=== PATIENT | female | born 1985 | race Caucasian/White ===

== ENCOUNTER 2023-07-19 16:44 | Outpatient (CLI) | payer BC, SELFPAY ==
[2023-07-19 16:24] LABS: Basophils # 0.1 K/mm3 (0-0.2); Basophils % 0.7 % (0.1-2.0); Eosinophils # 0.1 K/mm3 (0.0-0.4); Eosinophils % 1.3 % (0.1-12.0); Hematocrit 39.3 % (37.0-47.0); Hemoglobin 13.1 g/dL (12.2-16.2); Lymphocytes # 2.6 K/mm3 (0.7-4.5); Lymphocytes % 26.5 % (10-50); Mean Corpuscular HGB Conc 33.3 g/dL (31.8-35.4); Mean Corpuscular Hemoglobin 29.9 pg (27.0-31.2); Monocytes # 0.5 K/mm3 (0.1-1.0); Monocytes % 4.6 % (1.7-9.3); Neutrophils # 6.5 K/mm3 (1.8-7.8); Neutrophils % 66.8 % (37.0-80.0); Platelet Count 285 K/mm3 (142-424); Red Blood Count 4.37 M/mm3 (4.20-5.40); Red Cell Distribution Width 14.3 % (11.5-17.5); White Blood Count 9.8 K/mm3 (4.8-10.8)
[2023-07-19 16:39] LABS: Alanine Aminotransferase 12 U/L (12-78); Albumin/Globulin Ratio 1.4 (1.1-1.8); Alkaline Phosphatase 70 U/L (38-126); Anion Gap 7.9 mEq/L (5-15); Aspartate Amino Transferase 22 U/L (14-36); Bilirubin,Total 0.3 mg/dl (0.2-1.3); Blood Urea Nitrogen 13 mg/dl (7-17); Calcium 8.4 mg/dl (8.4-10.2); Carbon Dioxide 29 mmol/L (22.0-30.0); Chloride 105 mmol/L (98-107); Chol/HDL Ratio 5.2 (1-3.5); Cholesterol 199 mg/dl (140-200); Estimated Glomerular Filt Rate 70 ml/min (>60); GFR (African American) 85 ML/MIN (>60); Globulin 2.9 g/dL (1.3-3.2); Glucose 95 mg/dl (74-100); HDL Cholesterol 38 mg/dl (40-60); Potassium 3.9 mmoL/L (3.5-5.1); Sodium 138 mmol/L (136-145); Total Protein,Serum 6.9 g/dl (6.3-8.2); Triglycerides 115 mg/dl (30-150); VLDL Cholesterol 23 mg/dL (0-40)
[2023-07-19 16:52] LABS: Direct LDL Cholesterol 128.56 mg/dL (100-129)
[2023-07-19 17:44] LABS: Thyroid Stimulating Hormone 1.62 uIU/mL (0.465-4.68)
[2023-07-19 18:58] LABS: 25-OH Vitamin D, Total 17.6 ng/mL (30-100)
[2023-07-19 19:30] LABS: Vitamin B12 351 pg/mL (239-931)
== END 2023-07-19 23:59 ==
LOC: LAB.DROPOF 16:45
PROVIDERS: PCP Nurse Practitioner Family; Visit Provider Nurse Practitioner Family
DX: F41.9 Anxiety disorder, unspecified (principal); E55.9 Vitamin D deficiency, unspecified; Z79.899 Other long term (current) drug therapy
CPT/HCPCS: 80053; 80061; 82306; 82607; 84443; 85025

== ENCOUNTER 2024-07-20 09:05 | Outpatient (CLI) | payer BC, SELFPAY ==
[2024-07-20 16:26] LABS: Basophils # 0.1 K/mm3 (0-0.2); Basophils % 0.6 % (0.1-2.0); Eosinophils # 0.2 K/mm3 (0.0-0.4); Eosinophils % 2.4 % (0.1-12.0); Hematocrit 39.2 % (37.0-47.0); Hemoglobin 12.4 g/dL (12.2-16.2); Lymphocytes # 1.9 K/mm3 (0.7-4.5); Lymphocytes % 23.5 % (10-50); Mean Corpuscular HGB Conc 31.6 g/dL (31.8-35.4); Mean Corpuscular Hemoglobin 28.4 pg (27.0-31.2); Mean Corpuscular Volume 89.7 fl (81-99); Mean Platelet Volume 11.1 fl (7.4-10.4); Monocytes # 0.4 K/mm3 (0.1-1.0); Monocytes % 5.5 % (1.7-9.3); Neutrophils # 5.4 K/mm3 (1.8-7.8); Neutrophils % 67.8 % (37.0-80.0); Platelet Count 346 K/mm3 (142-424); Red Blood Count 4.37 M/mm3 (4.20-5.40); Red Cell Distribution Width 13.9 % (11.5-17.5)
[2024-07-20 16:57] LABS: Alanine Aminotransferase 13 U/L (12-78); Albumin Level 4.3 g/dl (3.5-5.0); Albumin/Globulin Ratio 1.7 (1.1-1.8); Alkaline Phosphatase 71 U/L (38-126); Anion Gap 13.4 mEq/L (5-15); Aspartate Amino Transferase 21 U/L (14-36); Bilirubin,Total 0.2 mg/dl (0.2-1.3); Blood Urea Nitrogen 14 mg/dl (7-17); Calcium 9.5 mg/dl (8.4-10.2); Carbon Dioxide 29 mmol/L (22.0-30.0); Chloride 103 mmol/L (98-107); Chol/HDL Ratio 4.4 (1-3.5); Cholesterol 218 mg/dl (140-200); Estimated Glomerular Filt Rate 80 ml/min (>60); GFR (African American) 97 ML/MIN (>60); Globulin 2.5 g/dL (1.3-3.2); Glucose 76 mg/dl (74-100); HDL Cholesterol 50 mg/dl (40-60); Potassium 4.4 mmoL/L (3.5-5.1); Sodium 141 mmol/L (136-145); Total Protein,Serum 6.8 g/dl (6.3-8.2); Triglycerides 142 mg/dl (30-150); VLDL Cholesterol 28 mg/dL (0-40)
[2024-07-20 17:09] LABS: Direct LDL Cholesterol 139.62 mg/dL (100-129)
[2024-07-20 17:14] LABS: T4 (Thyroxine) 9.6 ug/dl (5.53-11.0)
[2024-07-20 17:15] LABS: 25-OH Vitamin D, Total 36.2 ng/mL (30-100)
[2024-07-20 17:28] LABS: Hemoglobin A1C 5.2 % (4.0-6.0); Thyroid Stimulating Hormone 1.42 uIU/mL (0.465-4.68)
[2024-07-20 17:47] LABS: Vitamin B12 295 pg/mL (239-931)
[2024-07-20 17:51] LABS: HIV Combo NEGATIVE (Negative)
[2024-07-20 17:59] LABS: Hepatitis C Ab Qual. W/ RFX NEGATIVE (Negative)
== END 2024-07-20 23:59 | disposition home or self-care (01) ==
LOC: LAB.DROPOF 07-21 08:58
PROVIDERS: PCP Family Medicine; Visit Provider Nurse Practitioner Family
DX: R20.2 Paresthesia of skin (principal); E55.9 Vitamin D deficiency, unspecified; F41.9 Anxiety disorder, unspecified; I10 Essential (primary) hypertension; Z11.59 Encounter for screening for other viral diseases; Z11.4 Encounter for screening for human immunodeficiency virus [HIV]
CPT/HCPCS: 80053; 80061; 82306; 82607; 83036; 84436; 84443; 85025; 86803; 87389

== ENCOUNTER 2025-01-11 09:15 | Outpatient (CLI) | payer BC, SELFPAY ==
[2025-01-11 17:32] LABS: Hematocrit 41.4 % (37.0-47.0); Hemoglobin 13.4 g/dL (12.2-16.2); Immature Granulocytes % 0.4 %; Mean Corpuscular HGB Conc 32.4 g/dL (31.8-35.4); Mean Corpuscular Hemoglobin 28.5 pg (27.0-31.2); Mean Corpuscular Volume 88.1 fl (81-99); Nucleated Red Blood Cells % 0 %; Platelet Count 434 K/mm3 (142-424); Red Blood Count 4.70 M/mm3 (4.20-5.40); Red Cell Distribution Width-SD 42.6 fL; White Blood Count 10.9 K/mm3 (4.8-10.8)
[2025-01-11 18:17] LABS: Alanine Aminotransferase 10 U/L (12-78); Albumin Level 4.6 g/dl (3.5-5.0); Albumin/Globulin Ratio 1.5 (1.1-1.8); Alkaline Phosphatase 85 U/L (38-126); Anion Gap 20.5 mEq/L (5-15); Aspartate Amino Transferase 22 U/L (14-36); Bilirubin,Total 0.5 mg/dl (0.2-1.3); Blood Urea Nitrogen 7 mg/dl (7-17); Calcium 9.5 mg/dl (8.4-10.2); Carbon Dioxide 28 mmol/L (22.0-30.0); Chloride 96 mmol/L (98-107); Cholesterol 239 mg/dl (140-200); Creatinine,Serum 0.80 mg/dl (0.52-1.04); Estimated Glomerular Filt Rate 80 ml/min (>60); GFR (African American) 97 ML/MIN (>60); Globulin 3.0 g/dL (1.3-3.2); Glucose 60 mg/dl (74-100); HDL Cholesterol 54 mg/dl (40-60); Potassium 4.5 mmoL/L (3.5-5.1); Sodium 140 mmol/L (136-145); Total Protein,Serum 7.6 g/dl (6.3-8.2); Triglycerides 161 mg/dl (30-150)
[2025-01-11 18:33] LABS: 25-OH Vitamin D, Total 27.1 ng/mL (30-100)
[2025-01-13 06:37] LABS: Hepatitis B Surface Antigen Negative (Negative)
== END 2025-01-11 23:59 | disposition home or self-care (01) ==
LOC: LAB.DROPOF 01-12 13:32
PROVIDERS: PCP Nurse Practitioner Family; Visit Provider Nurse Practitioner Family
DX: E55.9 Vitamin D deficiency, unspecified (principal); I10 Essential (primary) hypertension; Z11.59 Encounter for screening for other viral diseases
CPT/HCPCS: 80053; 80061; 82306; 85025; 87340

== ENCOUNTER 2025-06-18 16:29 | Emergency (ER) | payer BC, SELFPAY ==
[2025-06-18 17:13] VITALS: BP 135/87; PULSE 82; O2SAT 99
--- NOTE | 2025-06-18 17:14 | XR_ITS ---
PROCEDURE INFORMATION: Exam: XR Chest Exam date and time: 06/18/2025 6:16 PM Age: 39 years old Clinical indication: Pain; Chest pressure; Additional info: Epigastric pain TECHNIQUE: Imaging protocol: Radiologic exam of the chest. Views: 1 view. COMPARISON: CT ABDOMEN PELVIS W CON 06/18/2025 6:12 PM FINDINGS: Lungs: Unremarkable. No consolidation. Pleural spaces: Unremarkable. No pleural effusion. No pneumothorax. Heart/Mediastinum: Unremarkable. No cardiomegaly. Bones/joints: Unremarkable. IMPRESSION: No acute findings.
--- NOTE | 2025-06-18 17:14 | CT_ITS ---
PROCEDURE INFORMATION: Exam: CT Abdomen And Pelvis With Contrast Exam date and time: 06/18/2025 6:12 PM Age: 39 years old Clinical indication: Nausea and vomiting; Additional info: Midepigastric tenderness, nausea vomiting TECHNIQUE: Imaging protocol: Computed tomography of the abdomen and pelvis with contrast. Radiation optimization: All CT scans at this facility use at least one of these dose optimization techniques: automated exposure control; mA and/or kV adjustment per patient size (includes targeted exams where dose is matched to clinical indication); or iterative reconstruction. Contrast material: ISOVUE; Contrast volume: 75 ml; Contrast route: IV; COMPARISON: No relevant prior studies available. FINDINGS: Liver: Normal. No mass. Gallbladder and biliary ducts: Normal. No calcified stones. No ductal dilation. Pancreas: Normal. No ductal dilation. Spleen: Normal. No splenomegaly. Adrenal glands: Normal. No mass. Kidneys and ureters: Normal. No hydronephrosis. Stomach and bowel: Unremarkable. No obstruction. No mucosal thickening. Appendix: No evidence of appendicitis. Intraperitoneal space: Unremarkable. No free air. No significant fluid collection. Vasculature: Unremarkable. No abdominal aortic aneurysm. Lymph nodes: Unremarkable. No enlarged lymph nodes. Urinary bladder: Unremarkable as visualized. Reproductive: Multiple cysts in the left ovary. Bones/joints: Unremarkable. No acute fracture. Soft tissues: Unremarkable. IMPRESSION: No acute findings.
[2025-06-18 17:15] VITALS: BP 135/87; PULSE 90; RESP 18; TEMP 37.1; O2SAT 99; BMI 41.1
--- NOTE | 2025-06-18 17:24 | ED_ITS ---
<Statement entered by Sunita Hines DO - 06/18/25 20:57> I was consulted by the KAREN, and we discussed the complexity of problems being addressed. I approve the treatment and management plan for this patient's care in the emergency department, thus performing a substantial portion of the medical decision making. Sunita Hines DO Discharge Plan Disposition Patient Disposition: Home, Self-Care Condition: Good Prescriptions Prescriptions: New pantoprazole 40 mg tablet,delayed release (DR/EC) 40 mg PO DAILY 28 Days Qty: 28 0RF No Action Mounjaro 2.5 mg/0.5 mL pen injector 2.5 mg SQ WEEKLY Rx Instructions: for 4 weeks ondansetron 8 mg tablet,disintegrating 8 mg PO Q8H PRN acyclovir 400 mg tablet 400 mg PO DAILY Qty: 30 2RF bupropion HCl 150 mg tablet extended release 24 hr 150 mg PO DAILY Qty: 90 1RF amlodipine 10 mg tablet 10 mg PO DAILY Qty: 90 1RF buspirone 10 mg tablet See Rx Instructions .ROUTE .COMPLEX Qty: 180 0RF Dose Instruction: TAKE 1 TABLET BY MOUTH TWICE DAILY NEEDED FOR ANXIETY Rx Instructions: TAKE 1 TABLET BY MOUTH TWICE DAILY NEEDED FOR ANXIETY cholecalciferol (vitamin D3) [Vitamin D3] 50 mcg (2,000 unit) tablet 50 mcg PO DAILY 90 Days Qty: 90 0RF Patient Comments: TAKE 1 CAPSULE BY MOUTH DAILY Referrals Follow up/Referrals: Tootie Porras APRN [Primary Care Provider, Family Practice] - See instructions Felice Alves II, MD [Staff Physician, Gastroenterology] - See instructions Activity Restrictions/Add. Instructions Additional Instructions/Restrictions: Please return to the emergency department any worsening signs or symptoms. Please take your antacid medication daily for 4-week or until GI follow-up, could utilize [id number] medications for breakthrough symptoms such as calcium carbonate (Tums), or famotidine (Pepcid). Please call for GI doctor follow-up, could also consider going to your family doctor for referral. Clinical Impressions Clinical Impression: Abdominal pain, epigastric, GERD (gastroesophageal reflux disease) Instructions Patient Instructions: DI for Gastroesophageal Reflux Disease (GERD), DI for Dyspepsia, DI for Epigastric Pain Print Language Print Language: Serbian Discharge ED Provider: Sunita Hines General Adult HPI General Chief complaint: Abdominal Pain Stated complaint: sent by marisa BONNER Time Seen by Provider: 06/18/25 17:04 Mode of Arrival: Ambulatory Source of Information: Patient Description of Symptoms (Recalled from ER Triage Doc. by RN): pt reports abdominal pain, increased burping and diarrhea for 2 days. unable to eat @ this time because she has been vomiting. abd is tender. History of Present Illness HPI narrative: 39-year-old female presents to the emergency department with midepigastric abdominal pain nausea and vomiting that has been ongoing for the last 1 to 2 months, poor p.o. intake and extensive nausea and vomiting for the last 2 days, patient also endorses belching , as well as bloating , patient saw her PCP today, who advised her to come to the emergency department. Patient admits to subjective fever chills no recorded Tmax, no chest pain no shortness of breath, denies any constipation diarrhea no urinary symptomatology, no vaginal discharge vaginal bleeding, patient has any hematuria hematochezia melena hematemesis or hemoptysis, patient is a current everyday smoker (vapes), denies any alcohol or drug use, other past medical history is consistent with ASHVIN/MDD hypertension, on GLP-1 agonist for weight loss for the last 2 months. Initial triage vitals are unremarkable patient has been utilizing Zofran with some relief to her nausea symptomatology. Has not yet tried any PPI or OTC medication for GERD. Please note that above description of symptoms, in this electronic medical record under categorization of recalled from ER triage doctor by RN are reflective of an initial nursing assessment, however, is not reflective of my full history and physical exam that was personally taken and clarified. Consequentially, this preceding description of symptoms, which may include the patient's categorized chief complaint in the EMR, do not reflect my personal clinical impression, and the ultimate description of history of present illness and patient stated complaints should be deferred to this section of the note. Unless stated otherwise or congruent with this section of the note, additional signs, symptoms, or incongruence should be interpreted as inaccurate with my clinical impression. Onset (ago): week(s) Related Data Home Medications ?Medication ?Instructions ?Recorded ?Confirmed tirzepatide 2.5 mg/0.5 mL 2.5 mg SQ WEEKLY 05/10/25 subcutaneous pen injector (Emilia) ondansetron 8 mg disintegrating 8 mg PO Q8H PRN 06/18/25 tablet Previous Rx's ?Medication ?Instructions ?Recorded bupropion HCl 150 mg 24 hr tablet, 150 mg PO DAILY #90 tabs 11/21/24 extended release acyclovir 400 mg tablet 400 mg PO DAILY #30 tabs 04/28 amlodipine 10 mg tablet 10 mg PO DAILY #90 tabs 10/27 buspirone 10 mg tablet See Rx Instructions .Route 0 03/26/25 .COMPLEX #180 tabs cholecalciferol (vitamin D3) 50 50 mcg PO DAILY 90 day s #90 tabs 06/04/25 mcg (2,000 unit) tablet (Vitamin D3) pantoprazole 40 mg tablet,delayed 40 mg PO DAILY 4 wee ks #28 tabs 06/18/25 release Allergies Allergy/AdvReac Type Severity Reaction Status Date / Time No Known Allergies Allergy Verified 06/18/25 15:21 [facility] Disclaimer: The information contained in this section may have been updated after the patient was seen, as this information can be updated by other users. Medical History Vitamin D deficiency Anxiety Surgical History History of Family History Mother Aneurysm Cancer Grandmother Stroke Cancer Social History Smoking Status: Never smoker smoking status stop date: 12/04/2019 alcohol intake: never substance use type: former substance user current occupational status: employed Travel in the last 8 weeks?: None household members: significant other and children housing: house Have you lived/traveled outside [place] in past 30 days?: No Contact w/someone who lives/traveled outside [place] past 30 days?: No Exposure to someone with infectious disease in past 14 days?: No Do you have a fever (greater than 100.4 F or 38 C)?: No Have you tested positive for COVID-19?: No Exposed to someone with COVID-19 in past 14 days?: No Do you have a sore throat?: No Do you have a cough?: No Do you have any weakness?: No Do you have any diarrhea?: No Are you experiencing any unusual bleeding?: No Do you have any muscle aches/pain?: No Do you have any abdominal pain?: No Are you experiencing loss of taste or smell?: No Other Medical History Have you received the Pneumonia Vaccine: No ROS Obtained: Yes All systems reviewed & no additional complaints except as documented Physical Exam General General appearance: alert and in no apparent distress Head Head exam: atraumatic and normocephalic Eye Eye exam: Present PERRL and EOMI ENT ENT exam: Present mucous membranes moist Neck Neck exam: Present normal inspection Chest Chest inspection: Present normal inspection and symmetric chest wall rise Respiratory Respiratory exam: Present normal lung sounds bilaterally; Absent respiratory distress, wheezes or stridor Cardiovascular Cardiovascular exam: Present regular rate and normal rhythm Abdominal Exam Abdominal exam: Present soft, tenderness and Smith's sign; Absent guarding, rebound, rigidity or tenderness at McBurney's Point Abdominal tenderness: Present epigastrium, diffuse and mild Extremities Exam Extremities exam: Present normal inspection Neurological Exam Neurological exam: Present alert and oriented X3 Psychiatric Psychiatric exam: Present normal affect Skin Skin exam: Present warm and dry Medical Decision Making Medical Records Medical records reviewed: Yes I reviewed the patient's medical records. Screening: Per USPSTF and CDC recommendations, given the prevalence of disease in our region, it is our hospital?s policy to screen for HIV and viral Hepatitis for all patients aged 18 and over and those with ongoing risk factors. Romain Inquiry Pt receiving controlled substance: Yes Romain was queried for this patient: No Reason not queried -: Emergent pt cond-no time Risks and benefits of using a controlled substance: were discussed with pt by me Vital Signs: 06/18/25 17:13 06/18/25 17:15 06/18/25 17:47 Temperature 98.7 F Temperature Source Oral Pulse Rate 82 86 Pulse Rate [Right] 90 Respiratory Rate 18 Blood Pressure 135/87 151/85 H Blood Pressure [Left Arm] 135/87 Blood Pressure Mean [Left Arm] 103 02 Sat by Pulse Oximetry 99 99 97 Oxygen Delivery Method Room Air 06/18/25 18:01 06/18/25 18:31 Temperature Temperature Source Pulse Rate 83 74 Pulse Rate [Right] Respiratory Rate Blood Pressure 129/89 117/69 Blood Pressure [Left Arm] Blood Pressure Mean [Left Arm] 02 Sat by Pulse Oximetry 98 97 Oxygen Delivery Method Room Air Room Air Lab Data Lab results reviewed: Yes I reviewed the patient's lab results. Lab Results 06/18/25 17:30: Sodium 141, Potassium 3.7, Chloride 105, Carbon Dioxide 24, A nion [place] 15.7 H, BUN 10, Creatinine 0.90, Estimated Creat Clear 144, Estimated GFR 70, Est GFR ( Amer) 84, Glucose 108 H, Calcium 9.6, Total Bilirubin 0.7, AST 31, ALT 15, Alkaline Phosphatase 97, Troponin I < 0.01, NT-Pro-B Natriuret Pep 96.4, Total Protein 9.6 H D, Albumin 5.2 H, Globulin 4.4 H, Albumin/Globulin Ratio 1.2, Lipase 80, Serum HCG, Qual Negative 06/18/25 17:38: WBC 15.5 H, RBC 5.18, Hgb 15.0, Hct 44.4, MCV 85.7, MCH 29.0, MCHC 33.8, RDW 13.5, Plt Count 383, MPV 11.4 H, Neut % (Auto) 73.9, Lymph % (Auto) 19.9, [place] % (Auto) 4.5, Eos % (Auto) 1.0, Baso % (Auto) 0.4, Neut # (Auto) 11.5 H, Lymph # (Auto) 3.1, [place] # (Auto) 0.7, Eos # (Auto) 0.2, Baso # (Auto) 0.1, Lactate 1.2, Urine Color Yellow, Urine Appearance Clear, Urine pH 6.0, Ur Specific [place] 1.015, Urine Protein Negative, Urine Glucose (UA) Negative, Urine Ketones 1+, Urine Blood Negative, Urine Nitrate Negative, Urine Bilirubin Negative, Urine Urobilinogen 0.2, Ur Leukocyte Esterase Negative, Urine RBC None, Urine WBC None, Ur Squamous Epith Cells Occasional, Urine Bacteria 1+ 06/18/25 17:38 06/18/25 17:30 Orders (Tests/Meds): ED MEDICATIONS Generic Name Dose Route Start Last Admin Trade Name Freq PRN Reason Stop Dose Admin Sodium Chloride 10 ml 06/18/25 18:13 06/18/25 18:14 Sodium Chloride 0.9% 10ml Syr (Rad Only) IV 07/18/25 18:12 10 ml NEEDED PRN Administration Maintain IV Site Discontinued Medications Generic Name Dose Route Start Last Admin Trade Name Freq PRN Reason Stop Dose Admin Belladonna Alkaloids 60 ml 06/18/25 17:21 06/18/25 17:39 Belladonna Alkaloids 60 Ml Ml PO 06/18/25 17:22 60 ml ONCE ONE Administration Iopamidol 75 ml 06/18/25 18:13 06/18/25 18:14 Iopamidol-370 (76%);100ml Bottle IV 06/18/25 18:14 75 ml ONCE ONE Administration Morphine Sulfate 4 mg 06/18/25 17:15 06/18/25 17:39 Morphine 4mg/Ml Syringe IV 06/18/25 17:16 4 mg ONCE ONE Administration Ondansetron HCl 4 mg 06/18/25 17:13 06/18/25 17:39 Ondansetron 4mg/2ml Vial IV 06/18/25 17:14 4 mg ONCE ONE Administration ORDERS Category Date Time Status CT abdomen pelvis w con Stat Cat Scan 06/18/25 17:14 Completed POCUS Point of Care (ER Only) Stat Exams 06/18/25 19:04 Ordered XR chest portable Stat Exams 06/18/25 17:14 Completed Complete Blood Count Auto Diff Stat Lab 06/18/25 17:38 Completed Comprehensive Metabolic Panel Stat Lab 06/18/25 17:30 Completed HCG Qualitative, Serum Stat Lab 06/18/25 17:30 Completed Lactic Acid Stat Lab 06/18/25 17:38 Completed Lipase Stat Lab 06/18/25 17:30 Completed NT Pro Brain Natriuretic Pep. Stat Lab 06/18/25 17:30 Completed Troponin I Q3H Lab 06/18/25 20:30 Ordered Troponin I Q3H Lab 06/18/25 23:30 Ordered Troponin I Stat Lab 06/18/25 17:30 Completed Urinalysis and Microscopic Stat Lab 06/18/25 17:38 Completed Medical Decision Narrative: 39-year-old female presents to the emergency department with history of midepigastric pain, bloating, poor p.o. intake and increased nausea vomit the last 2 days, differential diagnose include but not limited to cholelithiasis, cholecystitis, choledocholithiasis, gastritis, GERD, volvulus, colitis, ileitis, gastroenteritis, pancreatitis, diverticulitis, appendicitis, among others I discussed this patient's case with the attending physician Dr. Hines Will obtain basic laboratory studies, EKG, chest x-ray, hCG qualitative, lactic acid level lipase level urinalysis, proBNP and troponin, will obtain CT ab pelvis with contrast, the patient n.p.o. in the emerged from will give 4 mg of Zofran, 4 mg IV morphine and 60 mL of p.o. belladonna for GI type cocktail. No lactic acidosis UA is notable for 1+ bacteria, negative nitrites, negative hematuria, 1+ ketonuria, negative leukocyte esterase occasional squamous epithelial cells. hCG qualitative negative. CMP is notable for normal lipase, otherwise unremarkable CBC is noted for mild leukocytosis of 15.5, otherwise unremarkable Troponin is less than 0.01. proBNP within normal limits I reviewed the patient's chest x-ray along the corresponding radiologic report, no acute findings. I reviewed the patient's CT and pelvis with contrast on the corresponding radiologic report, no acute findings. Limited RUQ ultrasound Indication: [-Abdominal pain -Nausea/Vomiting] Identified structures: -Gallbladder -Gallbladder wall -Common bile duct -Liver Findings: Sonographic Smith sign: [Absent] Gallstones: [Absent] Sludge: [Absent] Pericholecystic fluid: [Absent] Maximal GB wall thickness (mm): [normal </= 3mm] [Normal] Common bile duct width (mm): [normal </= 6mm] [Normal] Gallbladder width (cm): [normal < 4cm] [Normal] Gallbladder length (cm): [normal < 10cm] [Normal] Impression: [-Normal gallbladder] Images [were saved] to permanent archive The study [was] technically adequate CPT 95617-44 This study was performed by me, and I personally interpreted all images/videos. Based on my clinical judgement, these images were [adequate] and [did not] necessitate further imaging. I discussed the results with the patient family bedside, reexamination the patient at approximately 7:15 PM, patient states that her symptomatology drastically improved after GI Cocktail, I believe this is some degree of gastritis. Will prescribe the patient 40 mg p.o. pantoprazole for 4 weeks until GI follow-up, recommend [id number] medications as needed for breakthrough symptomatology such as calcium carbonate and Pepcid. Patient and family given strict ED return precautions. Patient and family are in agreement with the current treatment plan/discharge plan. Critical Care Critical Care Time Critical Care Time: No
--- NOTE | 2025-06-18 17:36 | ECG_ITS ---
APPROVED REPORT Exam: Resting ECG HR:81 bpm ECG Measurements Heart Rate 81 AXES ME 131 P 57 QRSd 91 QRS 43 QT 353 T 37 QTc 390 Conclusion Normal sinus rhythm without acute ST or T wave changes concerning for ischemia Electronically signed by : Sunita Hines, 06/19/2025 23:47:24
[2025-06-18] MEDS: BELLADONNA ALKALOIDS 60 ML ML PO (17:39)
[2025-06-18] MEDS: ONDANSETRON 4MG/2ML VIAL 4 MG IV (17:39)
[2025-06-18] MEDS: MORPHINE 4MG/ML SYRINGE 4 MG IV (17:39)
[2025-06-18 17:45] LABS: Microscopic, Urine URINE MICROSCOPIC (MICROSCOPIC)
[2025-06-18 17:47] VITALS: BP 151/85; PULSE 86; O2SAT 97
[2025-06-18 17:48] LABS: Bilirubin,Urine Negative (Negative); Color,Urine YELLOW (Yellow); Glucose,Urine (UA) Negative (Negative); Ketones,Urine 1+ (Negative); Leukocyte Esterase,Urine Negative (Negative); PH,Urine 6.0 (5.0-8.5); Protein,Urine Negative (Negative); Specific Gravity, Urine 1.015 (1.005-1.030); Urobilinogen,Urine 0.2 EU/dl (0.2)
[2025-06-18 17:50] LABS: Hematocrit 44.4 % (37.0-47.0); Hemoglobin 15.0 g/dL (12.2-16.2); Immature Granulocytes % 0.3 %; Mean Corpuscular HGB Conc 33.8 g/dL (31.8-35.4); Mean Corpuscular Hemoglobin 29.0 pg (27.0-31.2); Mean Corpuscular Volume 85.7 fl (81-99); Nucleated Red Blood Cells % 0 %; Platelet Count 383 K/mm3 (142-424); Red Blood Count 5.18 M/mm3 (4.20-5.40); Red Cell Distribution Width-SD 42.5 fL; White Blood Count 15.5 K/mm3 (4.8-10.8)
[2025-06-18 17:53] LABS: Bacteria,Urine 1+ /lpf; Squamous Epithelial Cell,Urine Occasional #/hpf (0-5)
[2025-06-18 18:01] VITALS: BP 129/89; PULSE 83; O2SAT 98
[2025-06-18 18:01] LABS: HCG Qualitative, Serum Negative (Negative)
[2025-06-18 18:03] LABS: Alanine Aminotransferase 15 U/L (12-78); Albumin Level 5.2 g/dl (3.5-5.0); Albumin/Globulin Ratio 1.2 (1.1-1.8); Alkaline Phosphatase 97 U/L (38-126); Anion Gap 15.7 mEq/L (5-15); Aspartate Amino Transferase 31 U/L (14-36); Bilirubin,Total 0.7 mg/dl (0.2-1.3); Blood Urea Nitrogen 10 mg/dl (7-17); Calcium 9.6 mg/dl (8.4-10.2); Carbon Dioxide 24 mmol/L (22.0-30.0); Chloride 105 mmol/L (98-107); Creatinine Clearance Estimated 144 mL/min (50-200); Creatinine,Serum 0.90 mg/dl (0.52-1.04); Estimated Glomerular Filt Rate 70 ml/min (>60); GFR (African American) 84 ML/MIN (>60); Globulin 4.4 g/dL (1.3-3.2); Glucose 108 mg/dl (74-100); Lipase 80 U/L (23-300); Potassium 3.7 mmoL/L (3.5-5.1); Sodium 141 mmol/L (136-145); Total Protein,Serum 9.6 g/dl (6.3-8.2)
[2025-06-18 18:12] LABS: NT Pro Brain Natriuretic Pep. 96.4 pg/mL (0-125)
[2025-06-18] MEDS: SODIUM CHLORIDE 0.9% 10ML SYR (RAD ONLY) 10 ML IV (18:14)
[2025-06-18] MEDS: IOPAMIDOL-370 (76%);100ML BOTTLE 75 ML IV (18:14)
[2025-06-18 18:18] LABS: Troponin I < 0.01 ng/ml (0.00-0.034)
[2025-06-18 18:31] VITALS: BP 117/69; PULSE 74; O2SAT 97
--- NOTE | 2025-06-18 19:19 | PC.NURSE ---
Report received from Caitie GRAJEDA PT resting quietly in bed MLP doing ultrasound at this time. Resp full and easy Speech clear and appropriate. Pt awake alert and oriented IV site without redness or edema.
[2025-06-18 19:36] VITALS: BP 128/90; PULSE 92; RESP 20; TEMP 36.7; O2SAT 96
== END 2025-06-18 19:45 | disposition home or self-care (01) ==
PROVIDERS: Physician Assistant; Emergency Provider Student in an Organized Health Care Education/Training Program; PCP Nurse Practitioner Family
DX: K21.9 Gastro-esophageal reflux disease without esophagitis (principal); R10.13 Epigastric pain; F32.9 Major depressive disorder, single episode, unspecified; F41.1 Generalized anxiety disorder; I10 Essential (primary) hypertension; Z79.899 Other long term (current) drug therapy; D72.829 Elevated white blood cell count, unspecified; R11.2 Nausea with vomiting, unspecified
CPT/HCPCS: 71045; 74177; 80053; 81001; 83605; 83690; 83880; 84484; 84703; 85025; 93005; 96374; 96375; 99285; J2270; J2405; Q9967